=== PATIENT | female | born 1990 | race Caucasian/White ===

== ENCOUNTER → 2021-06-01 11:14 | Observation (INO) ==
[~2021-06-01 11:14] MED LIST: Ondansetron 4 MG/2 ML VIAL IVP PRN; Ringers Solution, Lactated 1,000 ML IVC ONE; Ringers Solution, Lactated 1,000 ML IVC SCH
== END | disposition home or self-care (01) ==
LOC: 1NENULAB
PROVIDERS: ADMIT Registered Nurse; ATTEND Registered Nurse

== ENCOUNTER 2021-06-15 17:36 | Observation (INO) ==
[2021-06-15] MEDS ORDERED: Morphine Sulfate 2 MG/ML SYRINGE IVP ONE (18:20)
[2021-06-15] MEDS ORDERED: Ringers Solution, Lactated 1,000 ML IVC SCH (18:45)
[2021-06-15 21:17] LABS: Amorphous Sediment,Urine Few per hpf (None-Few); Bacteria,Urine Few per hpf (None-Few); Bilirubin,Urine Negative (Negative); Blood,Urine Negative (Negative); Clarity,Urine Turbid (Clear); Color,Urine Yellow (Yellow); Glucose,Urine (UA) Normal (Normal); Ketones,Urine Negative (Negative); Leukocyte Esterase,Urine Negative (Negative); Mucus,Urine Few per lpf (None-Few); Nitrite,Urine Negative (Negative); Protein,Urine 30 mg/dL (Neg-Trace); RBC,Urine 0-3 per hpf (0-3); Specific Gravity,Urine 1.024 (1.010-1.025); Squamous Epithelial Cell,Urine Few per hpf (None-Few); Urobilinogen,Urine Normal (Normal); WBC,Urine 0-3 per hpf (0-3)
== END 2021-06-15 23:39 | disposition home or self-care (01) ==
LOC: 1NENULAB
PROVIDERS: ADMIT Registered Nurse; ATTEND Registered Nurse

== ENCOUNTER → 2021-06-22 17:10 | Observation (INO) | END | disposition home or self-care (01) | LOC: 1NENULAB | PROVIDERS: ADMIT Obstetrics & Gynecology; ATTEND Obstetrics & Gynecology ==

== ENCOUNTER 2021-06-28 07:30 | Inpatient (IN) ==
[2021-06-28] MEDS ORDERED: Metoclopramide 10 MG/2 ML VIAL IVP ONE (08:22)
[2021-06-28] MEDS ORDERED: Famotidine 20 MG/2 ML VIAL IVP ONE (08:22)
[2021-06-28] MEDS ORDERED: Ringers Solution, Lactated 1,000 ML IVC ONE (08:22)
[2021-06-28] MEDS ORDERED: Ringers Solution, Lactated 1,000 ML IVC SCH (08:30)
[2021-06-28] MEDS ORDERED: Oxytocin 30 UNIT/503 ML BAG IVC SCH (08:30)
[2021-06-28 08:50] LABS: Basophils % 0.3 %; Eosinophils # 0.1 K/mcL (0.0-0.6); Eosinophils % 0.9 %; Hematocrit 29.1 % (35.3-44.9); Hemoglobin 9.2 g/dL (11.5-15.4); Immature Granulocytes % 0.4 % (0-4); Lymphocytes % 12.9 %; Mean Corpuscular HGB Conc 31.6 g/dL (31.6-35.5); Mean Corpuscular Hemoglobin 27.7 pg (28.0-33.3); Mean Corpuscular Volume 87.7 fL (83.0-100.0); Mean Platelet Volume 11.5 fL (9.4-12.4); Monocytes # 0.8 K/mcL (0.0-1.3); Monocytes % 11.1 %; Neutrophils # 5.6 K/mcL (1.6-8.9); Platelet Count 166 K/mcL (140-400); Red Blood Count 3.32 M/mcL (3.82-4.97); Red Cell Distribution Width 14.6 % (11.5-14.5); Segmented Neutrophils % 74.4 %; White Blood Count 7.5 K/mcL (4.3-11.1)
[2021-06-28] MEDS ORDERED: CeFAZolin 2,000 MG/120 ML BAG IVPB SCH (09:00)
[2021-06-28] MEDS ORDERED: Promethazine 6.25 MG in Water for inj. (sterile) 20 ML IVPB PRN (09:04)
[2021-06-28] MEDS ORDERED: *HR* Midazolam HCl 2 MG/2 ML VIAL IVP PRN (09:04)
[2021-06-28] MEDS ORDERED: Acetaminophen IV 1,000 MG/100 ML BAG IVPB PRN (09:04)
[2021-06-28] MEDS ORDERED: *HR* Labetalol 20 MG/4 ML SYRINGE IVP PRN (09:04)
[2021-06-28] MEDS ORDERED: *HR* HYDROmorphone PF 0.5 MG/0.5 ML SYRINGE IVP PRN (09:04)
[2021-06-28] MEDS ORDERED: *HR* Meperidine 25 MG/ML SYRINGE IVP PRN (09:04)
[2021-06-28 09:30] LABS: Influenza A PCR Negative (Negative); Influenza B PCR Negative (Negative); Resp. Syncytial Virus PCR Negative (Negative); SARS-CoV-2 by PCR (In House) Negative (Negative)
[2021-06-28] MEDS ORDERED: Benzonatate 100 MG CAPSULE PO PRN (09:33)
[2021-06-28] MEDS ORDERED: *HR* Midazolam HCl 2 MG/2 ML VIAL ONE (09:54)
[2021-06-28] MEDS ORDERED: *HR* Morphine Sulfate/PF 10 MG/10 ML AMPUL ONE (09:54)
[2021-06-28] MEDS ORDERED: EPHEDrine 50 MG/ML VIAL ONE (09:54)
[2021-06-28] MEDS ORDERED: *HR* FentaNYL (PF) 100 MCG/2 ML VIAL ONE (09:54)
[2021-06-28] MEDS ORDERED: Ringers Solution, Lactated 1,000 ML ONE ×2 (09:55→10:48)
[2021-06-28] MEDS ORDERED: Acetaminophen IV 1,000 MG/100 ML BAG IVPB ONE (09:55)
[2021-06-28] MEDS ORDERED: Ondansetron 4 MG/2 ML VIAL ONE (09:55)
[2021-06-28 10:22] LABS: Amphetamine Screen,Urine Negative ng/mL (Cutoff=1000); Barbiturate Screen,Urine Negative ng/mL (Cutoff=200); Benzodiazepines Screen,Urine Negative ng/mL (Cutoff=200); Cannabinoid Screen,Urine Negative ng/mL (Cutoff = 50); Cocaine Screen,Urine Negative ng/mL (Cutoff= 300); Opiate Screen,Urine Negative ng/mL (Cutoff=300); Phencyclidine Screen,Urine Negative ng/mL (Cutoff=25)
[2021-06-28] MEDS ORDERED: Ketorolac 30 MG/ML VIAL ONE (10:33)
[2021-06-28] MEDS ORDERED: *HR* Oxytocin 10 UNIT/ML VIAL ONE (10:48)
[2021-06-28] MEDS ORDERED: Menthol 1 EACH LOZENGE PO PRN ×2 (10:50→13:59)
[2021-06-28] MEDS ORDERED: 0.9 % Sodium Chloride 2,000 ML ONE (12:00)
[2021-06-28] MEDS ORDERED: OXYTOCIN/RINGERS LACTATE 10 UNIT/166.6 ML BAG IVC ONE (13:59)
[2021-06-28] MEDS ORDERED: Metoclopramide 10 MG/2 ML VIAL IVP PRN (13:59)
[2021-06-28] MEDS ORDERED: Ondansetron 4 MG/2 ML VIAL IVP PRN (13:59)
[2021-06-28] MEDS ORDERED: Naloxone 0.4 MG/ML INJ IVP PRN (13:59)
[2021-06-28] MEDS ORDERED: Simethicone 80 MG TAB.CHEW PO PRN (13:59)
[2021-06-28] MEDS: Acetaminophen 325 MG TABLET PO SCH ×2 (16:39→22:46)
[2021-06-28] MEDS: Ibuprofen 600 MG TABLET PO SCH ×2 (16:40→22:46)
[2021-06-29] MEDS: *HR* OxyCODONE Immed Rel 5 MG TABLET PO PRN ×3 (02:11→15:07)
[2021-06-29 03:43] LABS: Basophils % 0.2 %; Eosinophils # 0.1 K/mcL (0.0-0.6); Eosinophils % 0.8 %; Hematocrit 25.5 % (35.3-44.9); Hemoglobin 8.2 g/dL (11.5-15.4); Immature Granulocytes % 0.4 % (0-4); Lymphocytes # 1.6 K/mcL (0.6-4.6); Lymphocytes % 17.2 %; Mean Corpuscular HGB Conc 32.2 g/dL (31.6-35.5); Mean Corpuscular Hemoglobin 28.1 pg (28.0-33.3); Mean Corpuscular Volume 87.3 fL (83.0-100.0); Mean Platelet Volume 11.5 fL (9.4-12.4); Monocytes % 11.1 %; Neutrophils # 6.5 K/mcL (1.6-8.9); Nucleated Red Blood Cells 0.2 /100 WBC (0); Platelet Count 161 K/mcL (140-400); Red Blood Count 2.92 M/mcL (3.82-4.97); Red Cell Distribution Width 14.7 % (11.5-14.5); Segmented Neutrophils % 70.3 %; White Blood Count 9.3 K/mcL (4.3-11.1)
[2021-06-29] MEDS: Acetaminophen 325 MG TABLET PO SCH ×4 (04:51→22:48)
[2021-06-29] MEDS: Ibuprofen 600 MG TABLET PO SCH ×4 (04:51→22:48)
[2021-06-29] MEDS ORDERED: FLUoxetine HCl 10 MG CAPSULE PO SCH (09:00)
[2021-06-29] MEDS: Prenatal Vit/FA 1 EACH TABLET PO SCH (09:02)
[2021-06-29] MEDS: Saline Nasal Spray 44 ML BOTTLE NS PRN ×2 (11:31→17:18)
[2021-06-29] MEDS: FLUoxetine HCl 10 MG CAPSULE PO SCH (21:04)
[2021-06-29] MEDS: Fluorometholone OPTH 5 ML BOTTLE BOTH EYES SCH (22:52)
[2021-06-30] MEDS: *HR* OxyCODONE Immed Rel 5 MG TABLET PO PRN ×2 (00:39→08:27)
[2021-06-30] MEDS: Acetaminophen 325 MG TABLET PO SCH ×2 (04:40→10:33)
[2021-06-30] MEDS: Ibuprofen 600 MG TABLET PO SCH ×2 (04:40→10:33)
[2021-06-30 06:48] VITALS: BP 100/59; PULSE 82; TEMP 97.3; O2SAT 96
[2021-06-30] MEDS: Prenatal Vit/FA 1 EACH TABLET PO SCH (08:28)
[2021-06-30] MEDS: FLUoxetine HCl 10 MG CAPSULE PO SCH (08:28)
[2021-06-30] MEDS: Fluorometholone OPTH 5 ML BOTTLE BOTH EYES SCH (08:33)
== END 2021-06-30 13:22 | disposition home or self-care (01) | DRG 788 ==
LOC: 1NENULAB 07:30 → 1NENUOBS 13:41
PROVIDERS: ADMIT Obstetrics & Gynecology; ATTEND Obstetrics & Gynecology